=== PATIENT | male | born 1995 | race Asian ===

== ENCOUNTER 2017-04-05 21:01 | Emergency (ER) | payer OTHER ==
[~2017-04-05] VITALS: Ht 167.6 cm; Wt 57.6 kg
[2017-04-05 21:03] VITALS: TEMP 37.1; Ht 167.6 cm; Wt 57.6 kg
--- NOTE | 2017-04-05 21:41 | DIAGNOSTIC IMAGING REPORT ---
L HAND MIN 3 VIEWS ROUTINE HISTORY: 22 years-old Male L hand (4th and 5th finger) pain acute left fifth digit pain status post trauma COMPARISON: None available TECHNIQUE: 3 views of the left hand FINDINGS: Acute oblique intra-articular fracture involves the dorsal medial aspect of the fifth distal phalanx without significant displacement. Acute intra-articular oblique fracture involves the fourth middle phalanx extending into the DIP joint demonstrating mild volar displacement of 2 mm. Moderate soft tissue swelling of the fourth and fifth digits. IMPRESSION: 1. Acute mildly displaced intra-articular fracture of the fourth middle phalanx. 2. Acute intra-articular fracture of the dorsal medial aspect of the fifth distal phalanx. The above report was generated using voice recognition software. It may contain grammatical, syntax or spelling errors. Electronically signed by: Vaughn Vasquez M.D. 04/05/2017 9:39 PM Dictated Date/Time: 04/05/2017 9:36 PM
[2017-04-05 22:09] VITALS: BP 131/73; PULSE 74; O2SAT 97
--- NOTE | 2017-04-05 22:51 | EMERGENCY ROOM VISIT NOTE ---
History First contact with patient: 21:12 Chief Complaint: FINGER PAIN Stated Complaint: BROKEN FINGERS, LEFT HAND History of Present Illness The patient is a 22 year old male who presents to the Emergency Room with complaints of injuries to his left fourth and fifth fingers while attempting to pop a balloon. The patient reports that it feels like his fingertips are dislocated. He did report a deformity of the fourth finger and pulled it to make it look straighter. He denies any pain extending into the hand or wrist. The patient is left-hand dominant, and rates his discomfort a 5 out of 10 on my exam. The patient has not taken any medicine for pain. Review of Systems 10 system review was performed and was negative except for pertinent positives and negatives as indicated in history of present illness Past Medical/Surgical History Medical Problems: (1) No significant past medical history Surgical Problems: (1) No history of previous surgery Family History FH: cancer Social History Smoking Status: Never Smoker Alcohol Use: none Marital Status: single Housing Status: lives with friends Occupation Status: [employer] student Current/Historical Medications No Active Prescriptions or Reported Meds Physical Exam Vital Signs Date Time Temp Pulse Resp B/P (MAP) Pulse Ox O2 Delivery O2 Flow Rate FiO2 04/05/17 22:09 74 18 131/73 97 04/05/17 21:03 37.1 82 18 112/74 98 Room Air Physical Exam CONSTITUTIONAL: Healthy and well nourished. Alert and oriented X 3 with positive affect. Patient does not appear in any acute distress or discomfort. HEENT: Normocephalic, atraumatic. Pupils equal, round and reactive. NECK: Full active range of motion without discomfort. MUSCULOSKELETAL: Examination shows edema of the distal fourth and fifth fingers. No open wounds or nail plate injuries noted. Capillary refill is less than 2 seconds. INTEGUMENTARY: No rash or other significant dermatologic conditions noted. NEUROLOGIC: No focal neurologic deficits noted. Left hand and fingers are sensory intact. Medical Decision & Procedures ER Provider Diagnostic Interpretation: My interpretation of left hand x-rays shows an intra-articular fracture extending from the middle phalanx of the ring finger into the DIP joint, and a dorsal avulsion fracture at the base of the distal phalanx of the fifth finger. No dislocations noted. Radiologist report is as follows: L HAND MIN 3 VIEWS ROUTINE HISTORY: 22 years-old Male L hand (4th and 5th finger) pain acute left fifth digit pain status post trauma COMPARISON: None available TECHNIQUE: 3 views of the left hand FINDINGS: Acute oblique intra-articular fracture involves the dorsal medial aspect of the fifth distal phalanx without significant displacement. Acute intra-articular oblique fracture involves the fourth middle phalanx extending into the DIP joint demonstrating mild volar displacement of 2 mm. Moderate soft tissue swelling of the fourth and fifth digits. IMPRESSION: 1. Acute mildly displaced intra-articular fracture of the fourth middle phalanx. 2. Acute intra-articular fracture of the dorsal medial aspect of the fifth distal phalanx. ED Course Patient history and physical exam were performed. Nurse's notes were reviewed. The patient refused any analgesics. An ice pack was applied. X-rays of the left hand shows fractures as discussed in the previous Diagnostic Interpretation section. A metal splint and yajaira taping were applied to the left fourth and fifth fingers. The patient was provided contact information for [facility] for further follow-up. The patient was encouraged to intermittently apply ice and elevate the hand for swelling. Ibuprofen and Tylenol in alternating fashion if needed for additional pain relief. The patient was happy with plan of care, voiced understanding of all discharge instructions, and denied any significant pain at the conclusion of my exam. Medical Decision Medication Reconcilliation Current Medication List: was personally reviewed by me Blood Pressure Screening Patient's blood pressure: Normal blood pressure Impression Primary Impression: Closed fracture of phalanx of left ring finger Additional Impression: Fracture of distal phalanx of left little finger Departure Information Dispostion Home / Self-Care Prescriptions No Active Prescriptions or Reported Meds Referrals Jose M Damon MD Forms HOME CARE DOCUMENTATION FORM, IMPORTANT VISIT INFORMATION Patient Instructions My [facility] Additional Instructions Ice and elevate hand for swelling and pain. Keep metal splint and yajaira taping in place. Ibuprofen 800 mg and/or Tylenol 1000 mg every 8 hours. You may also alternate these medications for more effective pain relief: Ibuprofen --4 HRS--> Tylenol --4 HRS--> ibuprofen --4 HRS--> Tylenol .... Follow-up with [facility] (Dr. Damon) for further evaluation and treatment - call Mon AM for appointment. Problem Qualifiers Primary Impression: Closed fracture of phalanx of left ring finger Encounter type: initial encounter Phalanx: middle Fracture alignment: displaced Qualified Codes: S62.625A - Displaced fracture of middle phalanx of left ring finger, initial encounter for closed fracture Additional Impression: Fracture of distal phalanx of left little finger Encounter type: initial encounter Fracture type: closed Fracture alignment : displaced Qualified Codes: S62.637A - Displaced fracture of distal phalanx of left little finger, initial encounter for closed fracture
[2017-04-11] MEDS ORDERED: OXYC-57 PO (08:21)
== END 2017-04-05 22:10 | disposition home or self-care (01) ==
LOC: C.EDB 21:04 → EDBD 21:04 → C.EDD 22:10
DX: S62.637A Displaced fracture of distal phalanx of left little finger, initial encounter for closed fracture (principal); S62.625A Displaced fracture of middle phalanx of left ring finger, initial encounter for closed fracture; W22.8XXA Striking against or struck by other objects, initial encounter

== ENCOUNTER → 2017-04-11 | Day surgery (SDC) | payer OTHER ==
[2017-04-10 10:51] VITALS: Ht 165.1 cm; Wt 57.0 kg
[~2017-04-11] VITALS: Ht 165.1 cm; Wt 57.0 kg
[~2017-04-11] MED LIST: ATROPINE SULFATE 0.1 MG/ML 5ML SYR IV PRN; CEFAZOLIN 1000MG/55 ML D5W IV SCH; CEFAZOLIN SOD 1000MG/55 ML D5W IV ONE; DEXAMETHASONE SOD INJ 4 MG/ML VIAL ONE; EpHEDrine SULFATE INJ 50 MG/ML AMP IV PRN; FENTANYL CITRATE INJ 50 MCG/1 ML 2 ML VIAL IV PRN; FENTANYL CITRATE INJ 50 MCG/1 ML 2 ML VIAL ONE; FLUMAZENIL 0.1 MG/1 ML 10 ML VIAL IV PRN; HYDROmorphone INJ 2 MG/ML SYR/VIAL IV PRN; LABETALOL HCL IV 5 MG/ML 20ML IV PRN; LACTATED RINGER'S 1000ML 1,000 ML IV SCH; LIDOCAINE HCL 2% 2 ML VIAL (20MG/ML) ONE; LIDOCAINE/EPINEPHRINE 1% INJ 50 ML VIAL ONE; MEPERIDINE HCL 25 MG/ML CARP IV PRN; MIDAZOLAM HCL 1 MG/ML 2ML VIAL ONE; MoRPHine SULFATE 2 MG/ML CARP IV PRN; MoRPHine SULFATE 4 MG/ML 1 ML CARP\\VIAL IV PRN; NALOXONE HCL 0.4 MG/1 ML VIAL/CARP IV PRN; ONDANSETRON INJ 2 MG/ML 2 ML VIAL IV PRN; ONDANSETRON INJ 2 MG/ML 2 ML VIAL ONE; OXYC-57 PO; OXYCODONE/ACETAMINOPHEN 5-325 TAB PO PRN; PHENYLEPHRINE 100MCG/ML 5ML SYR IV PRN; PROPOFOL IV EMULSION 10 MG/ML 20 ML VIAL IV ONE; SODIUM CHLORIDE 0.9% 1000ML 1,000 ML IV SCH
--- NOTE | 2017-04-11 06:41 | History & Physical Bridge Note ---
H&P Re-Evaluation Bridge Note: I have examined the patient, reviewed the History & Physical and in the interval since the performance of the History & Physical I have noted the following changes of clinical significance: No changes noted
--- NOTE | 2017-04-11 08:21 | Discharge Instructions-SurgCtr ---
Discharge Instructions Date of Service Apr 11, 2017. Visit Reason for Visit: Left Ring And Little Finger Fractures Discharge Discharge Diagnosis / Problem: left ring and little finger fractures Discharge Goals Goal(s): Decrease discomfort, Improve function, Increase independence Activity Recommendations Activity Limitations: per Instructions/Follow-up section Weightbearing Status: Left non-weightbearing (left hand) Anesthesia . Post Anesthesia Instructions: If you have had General Anesthesia or IV Sedation: * Do not drive today. * Resume driving when surgeon permits. * Do not make important decisions or sign legal documents today. * Call surgeon for: 1. Temperature elevations greater than 101 degrees F. 2. Uncontrollable pain. 3. Excessive bleeding. 4. Persistent nausea and vomiting. 5. Medication intolerance (nausea, vomiting or rash). * For nausea and vomiting use only clear liquids such as: tea, soda, bouillon until nausea subsides, then gradually increase diet as tolerated. * If you have any concerns or questions, call your surgeon's office. If physician is unavailable and it is an emergency, call 911 or go to the nearest emergency room. . Instructions / Follow-Up Instructions / Follow-Up DIET: * Resume previous diet. MEDICATIONS: * Please take your prescriptions as instructed at your pre-op appointment and/ or see medication discharge instructions listed above. * If concerns develop, call your physician's office at . SPECIAL CARE INSTRUCTIONS: * Ice to left hand as needed for pain/swelling * Elevate left hand above heart to relieve pain/swelling. * Keep dressing clean, dry, intact. Keep splint on at all times. Able to move/ wiggle other fingers as tolerated. * No use of left hand. No pushing, pulling, lifting left hand. Okay to use to write as needed or tolerated. * Your surgical extremity may be discolored due to prepping agents used on the skin. A bluish-green tint is a normal variant and should not cause alarm. Call your doctor at [phone] if: * Temperature above 101 degrees * Pain not relieved by pain medicine ordered * There is increased drainage or redness from any incision * You have any unanswered questions, problems or concerns. FOLLOW UP VISIT: * If not already scheduled, please call the office at to schedule a follow-up appointment. * You have a follow up appointment with [facility] on 04/15/17 at 8:00 a.m. * You have a follow up appointment with Dr. Doyle on 04/21/17 at 4:00 p.m. Diet Recommendations Home Diet: no limitations, resume previous diet Procedures Procedures Performed: Left Ring And Little Fingers Closed Reduction Percutaneous Pinning Pending Studies Studies pending at discharge: no Medical Emergencies . Who to Call and When: Medical Emergencies: If at any time you feel your situation is an emergency, please call 911 immediately. . Non-Emergent Contact Non-Emergency issues call your: Surgeon Call Non-Emergent contact if: temperature is above 101, your pain is not controlled, your pain is worsening, wound has increased drainage, wound has increased redness, wound has increased pain, you have any medication questions . . "Provider Documentation" section prepared by Katlyn Almeida. . [place] Drug Monitoring Program Search Results: patient reviewed within database, no issues identified
--- NOTE | 2017-04-11 08:27 | [facility] Operative Report ---
Operative Report Operative Date Apr 11, 2017. Pre-Operative Diagnosis Left Ring And Little Fingers Fractures Post-Operative Diagnosis Same Procedure(s) Performed Left Ring And Little Fingers Closed Reduction Percutaneous Pinning Surgeon Dr Doyle Gettering Filament Machine Operator Surgeon(s) Katlyn Almeida PA-C Estimated Blood Loss 2ml Findings Proximal phalanx fracture left ring finger, bony mallet fracture of his little finger Specimens None Drains none Anesthesia Gen. Complication(s) None Disposition Recovery Room / PACU (stable) Indications Patient is a 22-year-old male who injured his left fourth and fifth fingers 6 days ago while trying to pop a balloon. He immediate pain, went to the emergency room. X-rays were taken and he was found to have a left displaced fracture of his fourth proximal phalanx and a bony mallet fracture of his left small finger. It was placed in a splint and advised to follow-up with orthopedics. He was seen and evaluated by Dr. Doyle. Surgical intervention was recommended for improvement of fracture alignment and stabilization. He agreed to proceed with surgery. Risks and complications were discussed. Informed consent was obtained. Description of Procedure Patient was taken to the operating room and placed under general anesthesia. He was given 1 g of IV Ancef for surgical prophylaxis. Timeout was performed. This prepped and draped in routine sterile fashion. I was present during the entire case, please see Dr. Doyle's operative report for further detail. He was awakened and transferred to the recovery room in stable condition. I attest to the content of the Intraoperative Record and any orders documented therein. Any exceptions are noted below.
--- NOTE | 2017-04-11 08:28 | [facility] Operative Report ---
Operative Report Operative Date Apr 11, 2017. Pre-Operative Diagnosis Left Ring And Little Fingers Fractures Post-Operative Diagnosis Same Procedure(s) Performed Left Ring And Little Fingers Closed Reduction Percutaneous Pinning Surgeon Dr Doyle Hair Spring Cutter Surgeon(s) Gerald Almeida PA-C Estimated Blood Loss 2ml Findings Closed mallet fracture left hand little finger. Intra-articular fracture middle phalanx distal aspect left ring finger Specimens None Drains none Anesthesia LMA Complication(s) None Disposition Recovery Room / PACU Implants 0.035 inch K wires Indications Patient's a 22-year-old male who possible limited sustained the after mentioned injuries. The little finger injury would be amenable to nonsurgical treatment. I think it's reasonable to go ahead and pin this since he has a articular fracture at the PIP joint of the middle phalanx with rotational upper malady and displacement. Description of Procedure Informed consent was obtained. The patient identified. He identified operative site as the left ring and little fingers. I marked them with my initials. A preoperative surgical timeout was performed. A preoperative dose of IV antibiotics was given. He was taken to the operating room positioned supine on the operating room table and a laryngeal mask anesthetic was administered. A tourniquet was applied to the left arm but not inflated. The left arm supported on a hand table. The left upper extremity was prepped and draped in the usual sterile fashion. A ring finger initially showed internal rotation. With distraction and derotation anatomic alignment was obtained. Comparison was made preoperatively to the other fingers both flexed and extended and to the contralateral hand to obtain orientation of the nailbeds. Initially the nail bed of the ring finger was not parallel. EVT prophylaxis is not indicated. For scopic guidance was utilized for the case. 1% lidocaine with epinephrine was injected for digital block at the conclusion of the operation total volume 6 mL. Extension block pinning was performed on the little finger. A 0.035 inch K wire was introduced from the tip of the finger is still phalanx proximally. This was advanced part way's into the distal phalanx. Or scopic guidance was utilized to insert a pin just proximal to the dorsal fracture fragment. The finger was then flexed and this was utilized to pull the fragment distally. The dorsal pin was then driven into the metacarpal head percutaneously area the finger was extended but not completely and the distal pin was driven across the DIP joint. The joint was not subluxated. The fracture was anatomically aligned and the pin was were in good position both the AP and lateral planes. Satellite Instruction Facilitator fluoroscopic images were obtained. I elected to proceed with this procedure additionally because the fracture did show slight displacement on radiographs. Attention was then turned to the other of finger. That is the ring finger. The other fat fingers were wrapped in Covan. A towel clamp was placed percutaneously through the tuft of the distal phalanx. Longitudinal traction was applied and the fracture was manipulated with manual traction and compression. A bone clamp was applied across the joint compressing it. This resulted in an anatomic reduction. 2.035 inch K wires were then inserted across the articular fracture holding it in anatomic alignment. The pins were bicortical completely within the bone on both views. Pins were adjusted as necessary. The fracture had slight comminution proximally. The ulnar condyle was fractured off the fracture fragment was relatively small and this was shortened and rotated volarly. Anatomic alignment was obtained. The pins were in good position. Jurgan balls were applied and the pins were cut short outside the skin. Xeroform 4 x 4's and cast padding and a splint were applied. An aluminum foam 1 inch show splint holding the fingers in extension. Padding was placed between the fingers to protect the fingers in the pins. Patient was then awakened from anesthesia without difficulty taken recovery room in stable condition. There were no specimens or complications. Counts are correct in the case. Blood loss was minimal. At the conclusion of the operation I spoke the patient's friend and detailed postoperative instructions were given. He'll return in several days for wound check and dressing change. Pins will remain in place for 3-4 weeks. I attest to the content of the Intraoperative Record and any orders documented therein. Any exceptions are noted below.
--- NOTE | 2017-04-11 09:00 | Anesthesia Progress Nt - [facility] ---
Anesthesia Post Op Note Date & Time Apr 11, 2017 at 09:00 Vital Signs Pain Intensity: 0 Vital Signs Past 12 Hours Date Time Temp Pulse Resp B/P (MAP) Pulse Ox O2 Delivery O2 Flow Rate FiO2 04/11/17 08:19 36.2 61 20 117/54 100 Mask 6 04/11/17 06:27 36.7 60 16 97/73 (81) 97 Room Air Notes Mental Status: alert / awake / arousable, participated in evaluation Pt Amnestic to Procedure: Yes Nausea / Vomiting: adequately controlled Pain: adequately controlled Airway Patency, RR, SpO2: stable & adequate BP & HR: stable & adequate Hydration State: stable & adequate Anesthetic Complications: no major complications apparent
[2017-04-11 09:18] VITALS: TEMP 36.2
[2017-04-11 09:42] VITALS: BP 124/83; PULSE 50; O2SAT 100
== END | disposition home or self-care (01) ==
LOC: X.SURG 06:09
PROVIDERS: ATTEND Physical Medicine & Rehabilitation Sports Medicine
DX: S62.667A Nondisplaced fracture of distal phalanx of left little finger, initial encounter for closed fracture (principal); S62.625A Displaced fracture of middle phalanx of left ring finger, initial encounter for closed fracture; X58.XXXA Exposure to other specified factors, initial encounter

== ENCOUNTER → 2017-05-07 | Outpatient (CLI) | payer OTHER ==
[~2017-05-07] MED LIST changes: -ATROPINE SULFATE 0.1 MG/ML 5ML SYR IV PRN; -CEFAZOLIN 1000MG/55 ML D5W IV SCH; -CEFAZOLIN SOD 1000MG/55 ML D5W IV ONE; -DEXAMETHASONE SOD INJ 4 MG/ML VIAL ONE; -EpHEDrine SULFATE INJ 50 MG/ML AMP IV PRN; -FENTANYL CITRATE INJ 50 MCG/1 ML 2 ML VIAL IV PRN; -FENTANYL CITRATE INJ 50 MCG/1 ML 2 ML VIAL ONE; -FLUMAZENIL 0.1 MG/1 ML 10 ML VIAL IV PRN; -HYDROmorphone INJ 2 MG/ML SYR/VIAL IV PRN; -LABETALOL HCL IV 5 MG/ML 20ML IV PRN; -LACTATED RINGER'S 1000ML 1,000 ML IV SCH; -LIDOCAINE HCL 2% 2 ML VIAL (20MG/ML) ONE; -LIDOCAINE/EPINEPHRINE 1% INJ 50 ML VIAL ONE; -MEPERIDINE HCL 25 MG/ML CARP IV PRN; -MIDAZOLAM HCL 1 MG/ML 2ML VIAL ONE; -MoRPHine SULFATE 2 MG/ML CARP IV PRN; -MoRPHine SULFATE 4 MG/ML 1 ML CARP\\VIAL IV PRN; -NALOXONE HCL 0.4 MG/1 ML VIAL/CARP IV PRN; -ONDANSETRON INJ 2 MG/ML 2 ML VIAL IV PRN; -ONDANSETRON INJ 2 MG/ML 2 ML VIAL ONE; -OXYCODONE/ACETAMINOPHEN 5-325 TAB PO PRN; -PHENYLEPHRINE 100MCG/ML 5ML SYR IV PRN; -PROPOFOL IV EMULSION 10 MG/ML 20 ML VIAL IV ONE; -SODIUM CHLORIDE 0.9% 1000ML 1,000 ML IV SCH
== END | disposition home or self-care (01) ==
LOC: C.RDSM 08:50
PROVIDERS: ATTEND Physical Medicine & Rehabilitation Sports Medicine
DX: S62.625D Displaced fracture of middle phalanx of left ring finger, subsequent encounter for fracture with routine healing (principal); S62.667D Nondisplaced fracture of distal phalanx of left little finger, subsequent encounter for fracture with routine healing; X58.XXXD Exposure to other specified factors, subsequent encounter

== ENCOUNTER → 2017-05-28 | Outpatient (CLI) | payer OTHER | END | disposition home or self-care (01) | LOC: C.RDSM 08:50 | PROVIDERS: ATTEND Physical Medicine & Rehabilitation Sports Medicine | DX: S62.625D Displaced fracture of middle phalanx of left ring finger, subsequent encounter for fracture with routine healing (principal); S62.667D Nondisplaced fracture of distal phalanx of left little finger, subsequent encounter for fracture with routine healing; X58.XXXD Exposure to other specified factors, subsequent encounter ==

== ENCOUNTER → 2017-07-16 | Outpatient (CLI) | payer OTHER | END | disposition home or self-care (01) | LOC: C.RDSM 14:57 | PROVIDERS: ATTEND Physical Medicine & Rehabilitation Sports Medicine | DX: S62.625D Displaced fracture of middle phalanx of left ring finger, subsequent encounter for fracture with routine healing (principal); S62.667D Nondisplaced fracture of distal phalanx of left little finger, subsequent encounter for fracture with routine healing; X58.XXXD Exposure to other specified factors, subsequent encounter ==